=== PATIENT | female | born 1985 | race Caucasian/White ===

== ENCOUNTER 2017-05-29 05:51 | Emergency (ER) | payer OTHER ==
[2017-05-29 06:31] VITALS: TEMP 97.7; BMI 48.8
--- NOTE | 2017-05-29 07:34 | PDOC ---
History of Present Illness - General History Source: Patient Exam Limitations: Language Barrier - History of Present Illness Initial Comments: 05/29/17 07:56 The patient is a 31 year old female, with no significant past medical history who presents to the emergency department with left flank pain and dysuria for about a week. The patient reports having the gradual onset and worsening of left flank pain. She reports the pain is stabbing and constant. She denies recent fevers, chills, headache or dizziness. She denies recent nausea, vomit, diarrhea or constipation. She denies recent frequency, urgency or hematuria. She denies recent chest pain or shortness of breath. Allergies: NKA Past surgical history: None reported. Social history: Nonsmoker. Denies EtOH use and recreational drug use. Primary Care Physician: Dr.Khalil Tsai <Bronson Arriaga - Last Filed: 05/29/17 07:56> <Elder Flores - Last Filed: 05/29/17 10:37> - General Chief Complaint: Pain, Acute Stated Complaint: LT SIDE PAIN Time Seen by Provider: 05/29/17 07:30 Past History <Bronson Arriaga - Last Filed: 05/29/17 07:56> - Past Medical History Asthma: No Cancer: No Cardiac Disorders: No Diabetes: No HTN: No Seizures: No Thyroid Disease: No - Suicide/Smoking/Psychosocial Hx Smoking History: Never smoked Have you smoked in the past 12 months: No Information on smoking cessation initiated: No Hx Alcohol Use: No Drug/Substance Use Hx: No Hx Substance Use Treatment: No <Elder Flores - Last Filed: 05/29/17 10:37> - Past Medical History Allergies/Adverse Reactions: Allergies Allergy/AdvReac Type Severity Reaction Status Date / Time No Known Allergies Allergy Verified 05/29/17 06:06 Home Medications: Ambulatory Orders Acetaminophen [Tylenol .Regular Strength -] 650 mg PO Q3H PRN #0 tablet Ferrous Sulfate [Feosol] 325 mg PO BID ud 10/11/15 Ibuprofen [Motrin -] 200 mg PO Q4H PRN #0 tablet 10/11/15 Sulfamethoxazole/Trimethoprim [Bactrim Ds -] 1 tab PO BID #20 tablet 05/29/17 Review of Systems - Review of Systems Able to Perform ROS?: Yes Comments:: 05/29/17 07:56 GENERAL/CONSTITUTIONAL: No fever or chills. No weakness. HEAD, EYES, EARS, NOSE AND THROAT: No change in vision. No ear pain or discharge. No sore throat. CARDIOVASCULAR: No chest pain or shortness of breath. RESPIRATORY: No cough, wheezing, or hemoptysis. GASTROINTESTINAL: No nausea, vomiting, diarrhea or constipation. GENITOURINARY: No dysuria, frequency, or change in urination. MUSCULOSKELETAL: No joint or muscle swelling or pain. No neck or back pain. SKIN: No rash NEUROLOGIC: No headache, vertigo, loss of consciousness, or change in strength/ sensation. ENDOCRINE: No increased thirst. No abnormal weight change. HEMATOLOGIC/LYMPHATIC: No anemia, easy bleeding, or history of blood clots. ALLERGIC/IMMUNOLOGIC: No hives or skin allergy. <Bronson Arriaga - Last Filed: 05/29/17 07:56> *Physical Exam - Vital Signs Last Vital Signs Temp Pulse Resp BP Pulse Ox 97.7 F 76 12 120/72 98 05/29/17 06:06 05/29/17 06:06 05/29/17 06:06 05/29/17 06:06 05/29/17 06:06 - Physical Exam Comments: 05/29/17 07:57 GENERAL: Awake, alert, and fully oriented, in no acute distress HEAD: No signs of trauma EYES: PERRLA, EOMI, sclera anicteric, conjunctiva clear ENT: Auricles normal inspection, hearing grossly normal, nares patent, oropharynx clear without exudates. Moist mucosa NECK: Normal ROM, supple, no lymphadenopathy, JVD, or masses LUNGS: Breath sounds equal, clear to auscultation bilaterally. No wheezes, and no crackles HEART: Regular rate and rhythm, normal S1 and S2, no murmurs, rubs or gallops ABDOMEN: Soft, LUQ, LLQ, and CVA tenderness., normoactive bowel sounds. No guarding, no rebound. No masses EXTREMITIES: Normal range of motion, no edema. No clubbing or cyanosis. No cords, erythema, or tenderness NEUROLOGICAL: Cranial nerves II through XII grossly intact. Normal speech, normal gait SKIN: Warm, Dry, normal turgor, no rashes or lesions noted. <Bronson Arriaga - Last Filed: 05/29/17 07:56> - Vital Signs Last Vital Signs Temp Pulse Resp BP Pulse Ox 97.7 F 76 12 120/72 98 05/29/17 06:06 05/29/17 06:06 05/29/17 06:06 05/29/17 06:06 05/29/17 06:06 <Elder Flores - Last Filed: 05/29/17 10:37> ED Treatment Course - LABORATORY CBC & Chemistry Diagram: 05/29/17 08:10 05/29/17 08:10 <Elder Flores - Last Filed: 05/29/17 10:37> Medical Decision Making - Medical Decision Making 05/29/17 10:31 Patient is a well-appearing 31-year-old female who presents with left flank pain , dysuria and frequency. Differential diagnoses includes pyelonephritis versus nephrolithiasis versus ovarian cyst. Patient is afebrile. CBC is within normal limit. Urinalysis reveals pyuria with presence of red cells which is likely related to current menses. Bilateral renal ultrasound reveals no evidence of hydronephrosis or renal calculi. I suspect clinical pyelonephritis. Patient is received 1 g of IV ceftriaxone. Patient tolerates by mouth and is safe for outpatient treatment with Bactrim. Will discharge with medical follow-up. <Elder Flores - Last Filed: 05/29/17 10:37> *DC/Admit/Observation/Transfer - Attestations Scribe Attestion: 05/29/17 07:57 Documentation prepared by Bronson Arriaga, acting as medical records supervisor for Elder Flores MD/. <Bronson Arriaga - Last Filed: 05/29/17 07:56> - Attestations Physician Attestion: 05/29/17 10:31 The documentation was prepared by the scribe under my direct supervision. I have reviewed the documentation which correctly represents the findings, medical decision-making and critical action taken by me. <Elder Flores - Last Filed: 05/29/17 10:37> Diagnosis at time of Disposition: Pyelonephritis - Discharge Dispostion Disposition: HOME Condition at time of disposition: Stable - Referrals Referrals: Mahdi Malagon MD [Primary Care Provider] - Carmen Lamar MD [Staff Physician] - - Patient Instructions Printed Discharge Instructions: DI for Kidney Infection - Post Discharge Activity
[2017-05-29 07:45] LABS: URINE APPEARANCE SLCLOUDY; URINE BILIRUBIN NEGATIVE (<2.0 mg/dL); URINE BLOOD 3+ (NEGATIVE); URINE COLOR LTYELLOW; URINE GLUCOSE (UA) NEGATIVE (NEGATIVE); URINE KETONE NEGATIVE (NEGATIVE); URINE NITRITE NEGATIVE (NEGATIVE); URINE PROTEIN NEGATIVE (NEGATIVE); URINE UROBILINOGEN NEGATIVE mg/dL (0.2-1.0)
[2017-05-29] MEDS ORDERED: KETOROLAC TROMETHAMINE 15 MG/ML VIAL IVPUSH ONE (07:55)
[2017-05-29] MEDS ORDERED: SODIUM CHLORIDE 1,000 ML IV STA (07:55)
[2017-05-29] MEDS ORDERED: KETOROLAC TROMETHAMINE 15 MG/ML VIAL ONE (08:02)
[2017-05-29 08:08] LABS: URINE LEUK ESTERASE 2+ (NEGATIVE)
[2017-05-29 08:11] LABS: EPI CELLS RARE /HPF (FEW); URINE MUCUS RARE
[2017-05-29 08:19] LABS: HCG,QUALITATIVE URINE NEGATIVE
[2017-05-29 09:03] LABS: BASO % 0.6 % (0-2.0); EOS % 0.9 % (0-4.5); HEMATOCRIT 39.1 % (32.4-45.2); HEMOGLOBIN 13.1 GM/dL (10.7-15.3); LYMPH % 25.3 % (8-40); MCH 32.8 pg (25.7-33.7); MCHC 33.5 g/dl (32.0-36.0); MEAN CELL VOLUME 97.7 fl (80-96); MEAN PLT VOLUME 9.9 fl (7.5-11.1); MONO % 9.6 % (3.8-10.2); NEUT % 63.6 % (42.8-82.8); PLATELET COUNT 229 K/MM3 (134-434); RDW 13.8 % (11.6-15.6); WHITE BLOOD COUNT 6.1 K/mm3 (4.0-10.0)
[2017-05-29 09:27] LABS: ANION GAP 5 (8-16); BLOOD UREA NITROGEN 10 mg/dL (7-18); CALCIUM 8.5 mg/dL (8.5-10.1); CHLORIDE 107 mmol/L (98-107); CO2 28 mmol/L (21-32); CREATININE 0.6 mg/dL (0.55-1.02); GLUCOSE,RANDOM 89 mg/dL (74-106); POTASSIUM 3.9 mmol/L (3.5-5.1); SODIUM 140 mmol/L (136-145)
[2017-05-29] MEDS ORDERED: CEFTRIAXONE 1 GM/50 ML BAG ONE (09:49)
[2017-05-29 11:03] VITALS: BP 95/53; PULSE 58
== END 2017-05-29 10:45 | disposition home or self-care (01) ==
LOC: JER 05:51
PROC: 3E03329 Introduction of Other Anti-infective into Peripheral Vein, Percutaneous Approach (ICD-10-PCS; principal; 2017-05-29)
PROC: 3E0333Z Introduction of Anti-inflammatory into Peripheral Vein, Percutaneous Approach (ICD-10-PCS; 2017-05-29)
PROC: 3E0337Z Introduction of Electrolytic and Water Balance Substance into Peripheral Vein, Percutaneous Approach (ICD-10-PCS; 2017-05-29)
DX: N12 Tubulo-interstitial nephritis, not specified as acute or chronic (principal)
CPT/HCPCS: 36415; 76775-TC; 80048; 81003; 81015; 84703; 85025; 87086; 87186; 96361; 96374; 96375; 99283-25; J7030

== ENCOUNTER 2018-10-09 07:10 | Inpatient (IN) | payer OTHER ==
--- NOTE | 2018-10-09 07:37 | HP ---
Past Medical History - Admission Chief Complaint: Uterine contractions History of Present Illness: 32yo @ 39+wks here in labor. +ctx. No VB/LOF. 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, CVA, Dementia, Migraine, Multiple Sclerosis, Peripheral Neuropathy, Parkinson's, Seizure, Syncope, TIA, Vertigo, Other Cardiovascular: No: AFIB, Aneurysm, Aortic Insufficiency, Aortic Stenosis, CAD, CHF, Deep Vein Thrombosis, HTN, Hyperlipdemia, SD, Mitral Insufficiency, Mitral Stenosis, Murmur, Pulmonary Hypertension, Other Pulmonary: No: Asthma, Bronchitis, Cancer, COPD, O2 Dependent, Pneumonia, Previously Intubated, Pulmonary Embolus, Pulmonary Fibrosis, Sleep Apnea, Other Gastrointestinal: No: Ascites, Cancer, Constipation, Crohn's Disease, Diverticulitis, Diverticulosis, Esophageal Varices, Gastritis, GERD, GI Bleed, Hemorrhoids, Hiatal Hernia, Inflamatory Bowel Disease, Irritable Bowel Disease, Pancreatitis, Peptic Ulcer Disease, Ulcerative Colitis, Other ...: 3 ...Para: 2 ...Term: 2 ...: 0 ...EDC by Dates: 10/14/18 Heme/Onc: Yes: Anemia Infectious Disease: No: AIDS, C-Diff, Herpes Zoster, HIV, MRSA, STD's, Tuberculosis, VREF, Other Psych: No: Addictions, Anxiety, Bipolar, Depression, Panic, Psychosis, Schizophrenia, Other Musculoskeletal: No: Bursitis, Chronic low back pain, Hemiparesis, Hemiplegia, Osteoarthritis, Paraplegia, Other Rheumatology: No: Fibromyalgia, Gout, Lupus, Rheumatoid Arthritis, Sarcoidosis, Vasculitis, Other ENT: No: Allergic Rhinitis, Sinusitis, Other Endocrine: No: Ish's Disease, Joaquin's Disease, Diabetes Insipidus, Diabetes Mellitus, Hyperparathyroidism, Hyperthyroidism, Hypothyroidism, Osteopenia, SIADH, Other Dermatology: No: Basal Cell, Cellulitis, Eczema, Melanoma, Psoriasis, Squamous Cell, Other - Past Surgical History Past Surgical History: Yes: None Hx Myomectomy: No Hx Transabdominal Cerclage: No - Smoking History Smoking history: Never smoked Have you smoked in the past 12 months: No - Alcohol/Substance Use Hx Alcohol Use: No History of Substance Use: reports: None - Social History Usual Living Arrangement: Yes: With Spouse ADL: Independent History of Recent Travel: No Home Medications - Allergies Allergies/Adverse Reactions: Allergies Allergy/AdvReac Type Severity Reaction Status Date / Time No Known Allergies Allergy Verified 10/09/18 08:40 - Home Medications Home Medications: Ambulatory Orders Pnv No.95/Ferrous Fum/Folic AC [ Vitamin Tablet] 1 each PO DAILY Physical Exam - Maternity - Abdominal Exam/OB Number of Fetuses: Single Presentation: Vertex Contractions: Yes Regularity: Regular Intensity: Mod/Strong Monitor Mode: External Heart Rate Location: [facility] Category: I Accelerations: Non-Uniform Decelerations: None - Vaginal Exam/OB Vaginal Bleediing: No Speculum Exam: No Dilatation (cm): 8 Effacement (%): 100 Amniotic Membrane Status: Intact Presentation: Vertex/Position Station: -3 - Physical Exam Edema: No Assessment/Plan 32yo @ 39+wks here in labor, imminent delivery Admit to L&D NPO, IVFs Cat I tracing AROM Anticipate WONG Low MD
[2018-10-09] MEDS ORDERED: OXYTOCIN 20 UNITS in 0.9% NS 20 UNIT/1,000 ML INFUS.BAG IV ONE ×2 (07:44→09:04)
[2018-10-09] MEDS ORDERED: ELECTROLYTE-148 SOLN 1,000 ML IV SCH (07:45)
[2018-10-09] MEDS ORDERED: LIDOCAINE HCL 1% PRESERVATIVE FREE - 30ML VIAL ONE (07:52)
[2018-10-09] MEDS ORDERED: METHYLERGONOVINE MALEATE 0.2 MG/1 ML AMP IM PRN (08:08)
[2018-10-09] MEDS ORDERED: WITCH HAZEL 50% (TUCKS) 40 PAD/JAR PAD TP PRN (08:08)
[2018-10-09] MEDS ORDERED: BENZOCAINE 20% 57 GM BOTTLE TP PRN (08:08)
[2018-10-09] MEDS ORDERED: BENZOCAINE 28 GM HEMORRHOIDAL OINTMENT TP PRN (08:08)
[2018-10-09] MEDS ORDERED: BISACODYL 10 MG SUPP.RECT RC PRN (08:08)
--- NOTE | 2018-10-09 08:08 | PN ---
Delivery - Delivery Vaginal Delivery: Spontaneous Type of Anesthesia: Local Episiotomy/Laceration: Midline, 1st degree EBL (cc): 250 Delivery, Single - Stages of Labor Placenta: Yes: Spontaneous - Condition of Infant Gender: Female Position: Right, OA - 1 Minute Total Score: 9 5 Minutes Total Score: 9 Remarks - Remarks Remarks: of VFI from ROSANNA position over intact perineum. Nuchal x 1 delivered through. No meconium. Spontaneous delivery of anterior shoulder. Cord clamped and cut. placed on maternal abdomen. Weight pending to allow sufficient skin to skin. Apgars 9/9. Spontaneous delivery of intact placenta with 3VC. Fundus firm. Perineum inspected, first degree laceration repaired after lidocaine injection with 2-0 chromic. Fundus firm. Hemostasis noted. EBL 250ml. Mother and baby doing well. Bria Low MD
[2018-10-09] MEDS ORDERED: OXYTOCIN 20 UNITS in 0.9% NS 20 UNIT/1,000 ML INFUS.BAG IV SCH (08:15)
[2018-10-09 08:27] LABS: BASO % 0.5 % (0-2.0); EOS % 0.8 % (0-4.5); HEMATOCRIT 34.9 % (32.4-45.2); LYMPH % 18.2 % (8-40); MCH 34.3 pg (25.7-33.7); MCHC 34.5 g/dl (32.0-36.0); MEAN CELL VOLUME 99.6 fl (80-96); MEAN PLT VOLUME 10.2 fl (7.5-11.1); MONO % 8.1 % (3.8-10.2); NEUT % 72.4 % (42.8-82.8); PLATELET COUNT 163 K/MM3 (134-434); RBC 3.51 M/mm3 (3.60-5.2); WHITE BLOOD COUNT 7.8 K/mm3 (4.0-10.0)
[2018-10-09 08:39] LABS: INR 1.01 (0.83-1.09); PROTHROMBIN TIME (PATIENT) 11.9 SEC (9.7-13.0)
[2018-10-09 08:40] VITALS: BMI 29.9
[2018-10-09 08:42] LABS: ACTIVATED PTT 29.3 SECONDS (25.2-36.5)
[2018-10-09 08:57] LABS: BLOOD UREA NITROGEN 5.8 mg/dL (7-18); CALCIUM 8.4 mg/dL (8.5-10.1); CREATININE 0.5 mg/dL (0.55-1.3); POTASSIUM 3.6 mmol/L (3.5-5.1)
[2018-10-09] MEDS: PRENATAL VITAMINS W/ FOLIC ACID TABLET (FP) PO SCH (10:50)
[2018-10-09] MEDS: ACETAMINOPHEN 325 MG TABLET (FP) PO PRN (12:19)
[2018-10-09] MEDS: IBUPROFEN 600 MG TABLET (FP) PO PRN (12:20)
--- NOTE | 2018-10-10 06:56 | PN ---
Progress Note (short form) - Note Progress Note: ppd 1 s/p , no excess vaginal bleeding CBC, BMP 10/09/18 07:30 10/09/18 07:30 Last Vital Signs Temp Pulse Resp BP Pulse Ox 98.8 F 60 20 106/54 L 100 10/10/18 06:00 10/10/18 06:00 10/10/18 06:00 10/10/18 06:00 10/09/18 08:55 abdomen soft, uterus firm,non tender lochia mild no calf tenderness plan cbc , plan for d/c home in am
[2018-10-10 08:50] LABS: BASO % 0.6 % (0-2.0); EOS % 2.6 % (0-4.5); HEMATOCRIT 33.1 % (32.4-45.2); HEMOGLOBIN 11.5 GM/dL (10.7-15.3); LYMPH % 19.5 % (8-40); MCH 34.7 pg (25.7-33.7); MCHC 34.8 g/dl (32.0-36.0); MEAN CELL VOLUME 99.7 fl (80-96); MEAN PLT VOLUME 10.2 fl (7.5-11.1); MONO % 6.6 % (3.8-10.2); NEUT % 70.7 % (42.8-82.8); PLATELET COUNT 150 K/MM3 (134-434); RBC 3.32 M/mm3 (3.60-5.2); RDW 14.2 % (11.6-15.6); WHITE BLOOD COUNT 7.1 K/mm3 (4.0-10.0)
[2018-10-10] MEDS: PRENATAL VITAMINS W/ FOLIC ACID TABLET (FP) PO SCH (09:39)
[2018-10-10] MEDS: ACETAMINOPHEN 325 MG TABLET (FP) PO PRN (12:30)
[2018-10-10] MEDS: IBUPROFEN 600 MG TABLET (FP) PO PRN (12:31)
[2018-10-10] MEDS ORDERED: SENNOSIDES/DOCUSATE COMBO (SENNA PLUS) TABLET (UD) PO PRN (22:00)
[2018-10-11] MEDS: PRENATAL VITAMINS W/ FOLIC ACID TABLET (FP) PO SCH (09:18)
[2018-10-11 09:27] VITALS: BP 129/66; PULSE 65; TEMP 98.3
--- NOTE | 2018-10-11 09:40 | DS ---
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 Vital Signs: Vital Signs Temperature 98.3 F 10/11/18 09:26 Pulse Rate 65 10/11/18 09:26 Respiratory Rate 20 10/11/18 09:26 Blood Pressure 129/66 10/11/18 09:26 O2 Sat by Pulse Oximetry (%) 100 10/09/18 08:55 Constitutional: Yes: Well Nourished Eyes: Yes: Conjunctiva Clear HENT: Yes: Atraumatic Neck: Yes: Supple Cardiovascular: Yes: Regular Rate and Rhythm Respiratory: Yes: Regular Gastrointestinal: Yes: Normal Bowel Sounds Renal/: Yes: WNL Pelvis: Yes: WNL External Genitalia: Yes: Normal Vaginal Exam: Yes: Normal Cervix: Yes: Normal Uterus: Yes: Firm ....Post : Yes: Uterus firm Neurological: Yes: Alert, Oriented ...Motor Strength: WNL Psychiatric: Yes: Alert, Oriented Labs: CBC, BMP 10/10/18 08:00 10/09/18 07:30 Delivery - Delivery Vaginal Delivery: Spontaneous Type of Anesthesia: Local Episiotomy/Laceration: Midline, 1st degree EBL (cc): 250 Delivery, Single - Stages of Labor Date 1st Stage Initiatied: 10/09/18 Time 1st Stage Initiated: 03:30 Date 2nd Stage Initiated: 10/09/18 Time 2nd Stage Initiated: 07:45 Date of Delivery: 10/09/18 Time of Delivery: 07:51 Time Placenta Delivered: 07:55 Placenta: Yes: Spontaneous - Condition of Spot Facer/Application Engineer Present: No Infant Gender: Female Weight: 6 lb 15 oz Position: Right, OA Total Hours ROM (Hrs/Mins): 10MIN - 1 Minute Total Score: 9 5 Minutes Total Score: 9 - [place] Feeding Plan Initial Plan: Exclusive throughout hospitalization Discharge Summary Reason For Visit: LABOR ADMIT Procedures: Principal: Normal spontaneous vaginal delivery Hospital Course: Routine care Condition: Stable - Instructions Diet, Activity, Other Instructions: Regular Diet Follow up in 4-6 weeks for your visit with Dr. Low Referrals: Bria Low MD [Staff Physician] - Disposition: HOME - Home Medications Comprehensive Discharge Medication List: Ambulatory Orders Pnv No.95/Ferrous Fum/Folic AC [ Vitamin Tablet] 1 each PO DAILY
== END 2018-10-11 13:37 | disposition home or self-care (01) | DRG 560 ==
LOC: JLDR 07:10 → J3W 10:04
PROVIDERS: ADMIT Obstetrics & Gynecology; ATTEND Obstetrics & Gynecology
PROC: 10E0XZZ Delivery of Products of Conception, External Approach (ICD-10-PCS; principal; 2018-10-09)
PROC: 0HQ9XZZ Repair Perineum Skin, External Approach (ICD-10-PCS; 2018-10-09)
DX: O69.81X0 Labor and delivery complicated by cord around neck, without compression, not applicable or unspecified (principal); O70.0 First degree perineal laceration during delivery; Z3A.39 39 weeks gestation of pregnancy; Z37.0 Single live birth
CPT/HCPCS: 36415; 59409; 80048; 85025; 85610; 85730; 86593; 86850; 86900; 86901

== ENCOUNTER 2018-12-10 11:26 | Day surgery (SDC) | payer OTHER ==
[2018-12-10] MEDS ORDERED: BUPIVACAINE HCL/PF 0.25% (2.5MG/ML) 10 ML VIAL ONE (11:45)
[2018-12-10] MEDS ORDERED: PROMETHAZINE HCL 25 MG/1 ML VIAL IVPUSH PRN (12:10)
[2018-12-10] MEDS ORDERED: ONDANSETRON 4 MG/2 ML VIAL IVPUSH PRN (12:10)
[2018-12-10] MEDS ORDERED: oxyCODONE HCL 5 MG TABLET PO PRN (12:10)
[2018-12-10 12:15] VITALS: BMI 28.1
[2018-12-10] MEDS ORDERED: LACTATED RINGERS SOLUTION 1,000 ML IV SCH (12:15)
[2018-12-10] MEDS ORDERED: PROPOFOL 20 ML ONE (12:48)
[2018-12-10] MEDS ORDERED: MIDAZOLAM HCL 2 MG/2 ML SINGLE DOSE VIAL ONE (12:48)
[2018-12-10] MEDS ORDERED: LIDOCAINE HCL/PF 2% SDV 5ML VIAL ONE (12:49)
[2018-12-10] MEDS ORDERED: ROCURONIUM BROMIDE 50 MG/5 ML SYRINGE ONE (12:51)
--- NOTE | 2018-12-10 13:23 | HP ---
Admitting History and Physical - Admission History of Present Illness: 32yo here salpingectomy. 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, CVA, Dementia, Migraine, Multiple Sclerosis, Peripheral Neuropathy, Parkinson's, Seizure, Syncope, TIA, Vertigo, Other Cardiovascular: No: AFIB, Aneurysm, Aortic Insufficiency, Aortic Stenosis, CAD, CHF, Deep Vein Thrombosis, HTN, Hyperlipdemia, AR, Mitral Insufficiency, Mitral Stenosis, Murmur, Pulmonary Hypertension, Other Pulmonary: No: Asthma, Bronchitis, Cancer, COPD, O2 Dependent, Pneumonia, Previously Intubated, Pulmonary Embolus, Pulmonary Fibrosis, Sleep Apnea, Other Gastrointestinal: No: Ascites, Cancer, Constipation, Crohn's Disease, Diverticulitis, Diverticulosis, Esophageal Varices, Gastritis, GERD, GI Bleed, Hemorrhoids, Hiatal Hernia, Inflamatory Bowel Disease, Irritable Bowel Disease, Pancreatitis, Peptic Ulcer Disease, Ulcerative Colitis, Other ...LMP Comment: nov 2017- pt breast feeding ...: No Heme/Onc: Yes: Anemia Infectious Disease: No: AIDS, C-Diff, Herpes Zoster, HIV, MRSA, STD's, Tuberculosis, VREF, Other Psych: No: Addictions, Anxiety, Bipolar, Depression, Panic, Psychosis, Schizophrenia, Other Musculoskeletal: No: Bursitis, Chronic low back pain, Hemiparesis, Hemiplegia, Osteoarthritis, Paraplegia, Other Rheumatology: No: Fibromyalgia, Gout, Lupus, Rheumatoid Arthritis, Sarcoidosis, Vasculitis, Other ENT: No: Allergic Rhinitis, Sinusitis, Other Endocrine: No: Corydon's Disease, Premont's Disease, Diabetes Insipidus, Diabetes Mellitus, Hyperparathyroidism, Hyperthyroidism, Hypothyroidism, Osteopenia, SIADH, Other - Past Surgical History Past Surgical History: Yes: None - Smoking History Smoking history: Never smoked Have you smoked in the past 12 months: No - Alcohol/Substance Use Hx Alcohol Use: No History of Substance Use: reports: None - Social History Usual Living Arrangement: Yes: With Spouse ADL: Independent History of Recent Travel: No Home Medications - Allergies Allergies/Adverse Reactions: Allergies Allergy/AdvReac Type Severity Reaction Status Date / Time No Known Allergies Allergy Verified 12/09/18 09:04 - Home Medications Home Medications: Ambulatory Orders Pnv No.95/Ferrous Fum/Folic AC [ Vitamin Tablet] 1 each PO DAILY Ibuprofen 600 mg PO Q6H PRN #30 tablet 12/10/18 Physical Examination Vital Signs: Vital Signs Temperature 98.4 F 12/10/18 12:19 Pulse Rate 67 12/10/18 12:19 Respiratory Rate 20 12/10/18 12:19 Blood Pressure 107/71 12/10/18 12:19 O2 Sat by Pulse Oximetry (%) 100 12/10/18 12:20 Constitutional: Yes: Well Nourished, No Distress, Calm Cardiovascular: Yes: WNL, Regular Rate and Rhythm Respiratory: Yes: WNL, Regular, CTA Bilaterally Gastrointestinal: Yes: WNL, Normal Bowel Sounds Edema: No Assessment/Plan 32yo here for bilateral salpingectomy for sterilization NPO, IVFs SCDs Roper Risk and alternatives reviewed. Bleeding/infection/injury (bladder, bowel, adnexa, vessels, nerves). Stressed permanent nature of sterilization and inability to reverse procedure for future fertility. Pt expressed understanding and consents were signed. Jeancarlos Low MD
[2018-12-10] MEDS ORDERED: DEXAMETHASONE SOD PHOSPHATE 4 MG/1 ML VIAL ONE (13:35)
[2018-12-10] MEDS ORDERED: BUPIVACAINE HCL/PF 0.25% (2.5MG/ML) 10 ML VIAL IJ ONE ×2 (13:43)
[2018-12-10] MEDS ORDERED: NEOSTIGMINE METHYLSULFATE 0.5 MG/ML - 10 ML MDV ONE (14:03)
[2018-12-10] MEDS ORDERED: GLYCOPYRROLATE 0.2 MG/1 ML VIAL ONE (14:05)
--- NOTE | 2018-12-10 14:16 | OP ---
Operative Note - Note: Operative Date: 12/10/18 Pre-Operative Diagnosis: Desires Permanent Sterilization Operation: Laparoscopic Bilateral Salpingectomy Findings: Normal tubes and ovaries bilaterally Normal uterus Post-Operative Diagnosis: Same as Pre-op Surgeon: Bria Low Mobile Equipment Servicer: Garima Mcconnell Anesthesia: General Estimated Blood Loss (mls): 25 Drains, Volume Out (mls): 100 (clear urine) Operative Report Dictated: Yes
--- NOTE | 2018-12-10 16:33 | SURG ---
Surgery [employer] Information [employer] Officer Note [employer] Officer: Garima Mcconnell PA-C (Suzy) Date of Service: 12/10/18 Diagnosis: Desires Permanent Sterilization Procedure: Operation: Laparoscopic Bilateral Salpingectomy I was present for the entirety of the operative procedure. For further detail, please refer to operative report. Visit type - Case Type Case Type: Scheduled - Emergency Emergency Visit: No - New patient This patient is new to me today: Yes Date on this admission: 12/10/18 - Critical Care Critical Care patient: No
[2018-12-10 17:38] VITALS: BP 116/74; PULSE 69; TEMP 98.5
--- NOTE | 2018-12-12 16:57 | PATH ---
Surgical Pathology Report Patient Name: GOOD VELA [facility]. Rec. #: [id number] /Age/Gender: 1985 (Age: 32) / F Account: [id number] Location: [facility] SURGICAL Taken: 12/10/2018 Received: 12/11/2018 Reported: 12/12/2018 Physicians: Bria Low Specimen(s) Received A: LEFT FALLOPIAN TUBE B: RIGHT FALLOPIAN TUBE Clinical History Desires sterilization Final Diagnosis A. LEFT FALLOPIAN TUBE, SALPINGECTOMY: PORTION OF FALLOPIAN TUBE WITH PARATUBAL CYSTS. COMPLETE CROSS SECTION OF THE FALLOPIAN TUBE LUMEN IDENTIFIED. B. RIGHT FALLOPIAN TUBE, SALPINGECTOMY: PORTION OF FALLOPIAN TUBE WITH PARATUBAL CYSTS. COMPLETE CROSS SECTION OF THE FALLOPIAN TUBE LUMEN IDENTIFIED. Electronically Signed Gopal Branch M.D. Gross Description A. Received in formalin labeled "left fallopian tube," is a 5.5 cm in length fimbriated fallopian tube. The outer surface is villa-salcedo and smooth. Sectioning reveals an unremarkable lumen. Records Management Engineer sections are submitted in 2 cassettes as follows: 1-fimbria; 2-cross sections of fallopian tube. B. Received in formalin labeled "right fallopian tube," are 2 portions of fallopian tube measuring 1.5 and 2.5 cm in length. The longer portion displays attached fimbria. The outer surfaces are villa-salcedo and smooth. Sectioning reveals unremarkable lumen. Records Management Engineer sections are submitted in 2 cassettes as follows: 1-fimbria; 2-cross sections of fallopian tube. /12/11/2018 saudi12/11/2018
--- NOTE | 2018-12-15 15:54 | OP ---
DATE OF OPERATION: 12/10/2018 PREOPERATIVE DIAGNOSIS: Desires permanent sterilization. POSTOPERATIVE DIAGNOSIS: Desires permanent sterilization. PROCEDURE: Laparoscopic bilateral salpingectomy. ANESTHESIA: General. INTRAVENOUS FLUIDS: 500 mL. ESTIMATED BLOOD LOSS: 25. URINE OUTPUT: Clear urine 100 mL at the end of the procedure. SURGEON: Bria Low MD INTERNAL AFFAIRS INVESTIGATOR: ARIES Melendez FINDINGS: Normal tubes, normal ovaries, normal uterus. COMPLICATIONS: None. CONDITION: Stable to recovery room. NATURE OF THE PROCEDURE: After the appropriate consents were signed, patient was taken to the operating room. General anesthesia was administered. She was placed in dorsal lithotomy position. The abdomen and pelvis were prepped and draped in the normal sterile fashion. A sterile Roper catheter was inserted into the bladder with clear return of urine. Timeout was performed confirming correct patient and procedure. Next, 0.25% Marcaine was injected into the umbilicus. Then, a stab incision was made with a 15-blade scalpel to accommodate a 5-mm laparoscope which was introduced under direct visualization. Entry into the abdominal cavity was confirmed. The abdomen was insufflated with gas. Patient was placed in Trendelenburg position. A left lower quadrant port was made after injection of 0.25% Marcaine. The left lower quadrant port was introduced under direct visualization without difficulty. A right lower quadrant was placed in a similar fashion without incident. The uterus appeared normal. Both fallopian tubes and ovaries also appeared normal without any masses or lesions. The patient's left fallopian tube was grasped, carried through to the fimbriated ends, and noted to be normal. Using the LigaSure, the device was used to separate the fallopian tube along the mesosalpinx until its insertion point at the uterus, which was transected with the LigaSure device. The bite sites were all noted to be hemostatic. The patient's left fallopian tube was then removed through the patient's right lower quadrant port. Attention was then paid to the right fallopian tube which was grasped, carried through to the fimbriated ends, noted to be normal. Then, using the LigaSure device in subsequent bites, the fallopian tube was ligated along the mesosalpinx until its insertion point. At which, it was transected with the LigaSure device. The bite sites were noted to be hemostatic. The fallopian tube was then removed from the patient's left lower quadrant port. The left fallopian tube stump site was noted to be hemostatic. The right fallopian tube stump site was noted to be hemostatic. The left and right lower quadrant ports were removed under visualization. The umbilical port was removed without difficulty. The abdomen was deflated of gas. The patient was returned out of Trendelenburg position. The incision sites were closed with a 4-0 Biosyn. Appropriate bandages were placed. All sponge, lap, and needle counts were correct x3. The patient did not receive any antibiotics at the start of the procedure. The Roper catheter was removed in the operating room prior to transfer into the recovery area. MD TRISTA KUMARI/[id number]
== END 2018-12-10 17:35 | disposition home or self-care (01) ==
LOC: JASU-SURG 11:26
PROVIDERS: ATTEND Obstetrics & Gynecology
PROC: 0UB74ZZ Excision of Bilateral Fallopian Tubes, Percutaneous Endoscopic Approach (ICD-10-PCS; 2018-12-10)
PROC: 0UB74ZZ Excision of Bilateral Fallopian Tubes, Percutaneous Endoscopic Approach (ICD-10-PCS; principal; 2018-12-10 12:30)
DX: Z30.2 Encounter for sterilization (principal); N83.8 Other noninflammatory disorders of ovary, fallopian tube and broad ligament
CPT/HCPCS: 84703; 88302-TC; 94760